=== PATIENT | female | born 1950 | race Hispanic/Latino ===

== ENCOUNTER 2017-12-23 15:47 | Outpatient (CLI) | payer MEDICARE, MEDICAID | END 2017-12-23 15:48 | disposition home or self-care (01) | LOC: BICMAMMO 15:47 | PROVIDERS: ATTEND Family Medicine | DX: Z12.31 Encounter for screening mammogram for malignant neoplasm of breast (principal) | CPT/HCPCS: 77063; 77067 ==

== ENCOUNTER 2018-12-30 15:03 | Outpatient (CLI) | payer MEDICARE, MEDICAID ==
--- NOTE | 2018-12-31 11:14 | MMO ---
Bilateral MAMMO Bilat Screen [facility]. CLINICAL HISTORY: Patient is 68 years old and is seen for screening. The patient has no family history of breast cancer. The patient has no personal history of cancer. VIEWS: The views performed were: bilateral craniocaudal with tomosynthesis and bilateral mediolateral oblique with tomosynthesis. FILMS COMPARED: The present examination has been compared to prior imaging studies performed at [facility] on 12/23/2017, and at [facility] on 10/19/2016. MAMMOGRAM FINDINGS: There are scattered fibroglandular densities. There are benign appearing calcifications seen in both breasts. There are also vascular calcifications. There are no suspicious masses, suspicious calcifications, or new areas of architectural distortion. IMPRESSION: THERE IS NO MAMMOGRAPHIC EVIDENCE OF MALIGNANCY. A ROUTINE FOLLOW-UP MAMMOGRAM IN 1 YEAR IS RECOMMENDED. THE RESULTS OF THIS EXAM WERE SENT TO THE PATIENT. ACR BI-RADS Category 2 - Benign finding MAMMOGRAPHY NOTE: 1. A negative mammogram report should not delay a biopsy if a dominant of clinically suspicious mass is present. 2. Approximately 10% to 15% of breast cancers are not detected by mammography. 3. Adenosis and dense breasts may obscure an underlying neoplasm.
== END 2018-12-30 15:04 | disposition home or self-care (01) ==
LOC: BICMAMMO 15:03
PROVIDERS: ATTEND Family Medicine
DX: Z12.31 Encounter for screening mammogram for malignant neoplasm of breast (principal)
CPT/HCPCS: 77063; 77067

== ENCOUNTER 2019-05-28 15:54 | Outpatient (CLI) | payer MEDICARE, MEDICAID ==
--- NOTE | 2019-05-28 16:17 | RAD ---
2 views lumbar spine: 05/28/2019 COMPARISON: None HISTORY: Low back pain, pain for 2 months FINDINGS: There is prominent facet hypertrophy at L4-5. There is anterolisthesis of L4 on L5 measurin g 9 mm. There is atherosclerotic calcification of the abdominal aorta. There is multilevel lower lumbar spine facet hypertrophy. Pedicles are intact on frontal imaging. IMPRESSION: Lower lumbar spine facet hypertrophy with anterolisthesis of L4 on L5 measuring 9 mm. Rec ommend MRI for full assessment.
== END 2019-05-28 15:55 | disposition home or self-care (01) ==
LOC: BICRAD 15:54
PROVIDERS: ATTEND Family Medicine
DX: M54.5 Low back pain (principal); M43.16 Spondylolisthesis, lumbar region
CPT/HCPCS: 72100

== ENCOUNTER 2019-05-30 09:39 | Inpatient (IN) | payer MEDICARE, MEDICAID ==
[2019-05-30] MEDS ORDERED: Morphine 4 MG/ML VIAL ONE (10:24)
[2019-05-30] MEDS ORDERED: Ondansetron PF 4 MG/2 ML Vial ONE (10:24)
--- NOTE | 2019-05-30 10:58 | RAD ---
Frontal radiograph chest: 05/30/2019 COMPARISON: None HISTORY: Fall, trauma, pain FINDINGS: Supine imaging is provided, limiting assessment for pneumothorax and pleural fluid. Atheros clerotic calcification of the aortic arch noted. No focal consolidation or alveolar edema. IMPRESSION: No acute findings.
--- NOTE | 2019-05-30 10:58 | RAD ---
3 views right shoulder: 05/30/2019 COMPARISON: None HISTORY: Fall, trauma, pain FINDINGS: No fracture or dislocation. There is no widening of the acromioclavicular or coracoclavicul ar interspace. IMPRESSION: No acute findings.
--- NOTE | 2019-05-30 11:00 | RAD ---
2 views right knee: 05/30/2019 COMPARISON: None HISTORY: Fall, trauma, pain FINDINGS: There is a comminuted impacted displaced intra-articular fracture of the distal right femur . The patella projects lateral and inferior to the lateral femoral condyle which may signify patellar dislocation as well. Orthopedic consultation advised. IMPRESSION: Impacted comminuted displaced intra-articular fracture of the distal right femur with pos sible associated patellar dislocation.
--- NOTE | 2019-05-30 11:01 | RAD ---
Frontal and lateral imaging right femur: 05/30/2019 COMPARISON: None HISTORY: Fall, trauma, pain FINDINGS: Markedly displaced comminuted intra-articular fracture of the distal right femur noted. Ort hopedic consultation advised. IMPRESSION: Markedly comminuted and displaced intra-articular fracture of distal right femur.
--- NOTE | 2019-05-30 11:02 | RAD ---
Frontal and lateral imaging of the right tibia/fibula: 05/30/2019 COMPARISON: None HISTORY: Fall, trauma, pain FINDINGS: Partially imaged distal right femur fracture noted. No definite fracture of proximal tibia. No acute osseous abnormality is seen involving the right tibia or fibula. IMPRESSION: Partially visualized distal right femur fracture.
--- NOTE | 2019-05-30 11:27 | CT ---
EXAM: Brain CT scan Without contrast: HISTORY: Injury from a fall COMPARISON: None FINDINGS: Atrophy and chronic white matter ischemic change. No focal mass or midline shift. No intra or extra-axial hemorrhage. The visualized sinuses and mastoids are clear of acute process. IMPRESSION: No mass or bleed or other significant acute intracranial process.
[2019-05-30 11:32] LABS: #Eosinphils 0.2 thou/uL (0.0-0.7); #Lymphocytes 1.9 thou/uL (1.20-3.40); #Monocytes 0.6 thou/uL (0.11-0.59); %Basophils 0.1 % (0.0-1.0); %Eosinophils 1.2 % (0.0-10.0); %Lymphocytes 13.7 % (21.0-51.0); %Monocytes 4.1 % (0.0-10.0); %Neutrophils 80.9 % (42.0-75.0); Hemoglobin 12.9 g/dL (12.0-16.0); Mean Corpuscular HGB CONC 33.9 g/dL (32.0-36.0); Mean Corpuscular Hemoglobin 31.1 pg (27.0-31.0); Mean Corpuscular Volume 91.7 fL (78.0-98.0); Platelet Count 253 thou/uL (130-400); RBC Distribution Width 11.7 % (11.5-14.5); Red Blood Cell (RBC) Count 4.14 mill/uL (4.20-5.40); White Blood Cell (WBC) Count 13.5 thou/uL (4.8-10.8)
--- NOTE | 2019-05-30 11:41 | CT ---
EXAM: CT scan cervical spineWithout contrast: HISTORY: COMPARISON: None FINDINGS: No evidence for acute fracture or facet dislocation. No significant malalignment. Disc osteophytosis changes are noted most marked at C5 and C6 with some associated lateral recess roman nosis. There is some swelling and possibly minimal low-attenuation changes within the right sternocleidomastoid muscle and some adjacent perimuscular edema or hemorrhage raising concern for int ramuscular injury. In addition there is a question of a hairline fracture of the medial right clavicle incompletely seen on this study., Please correlate clinically. IMPRESSION: No evidence for acute cervical spine fracture. Cervical spondylosis. Thickening and some perimuscular fluid involving the right sternocleidomastoid muscle, evidence for i njury with a possible nondisplaced medial right clavicle fracture incompletely seen.
[2019-05-30 11:47] LABS: PTT 22.8 SEC (22.9-36.1)
[2019-05-30 11:53] LABS: ALT (SGPT) 18 U/L (8-55); AST (SGOT) 21 U/L (5-34); Alkaline Phosphatase 88 U/L (40-150); Anion Gap 12 mmol/L (10-20); BUN (Urea Nitrogen) 13 mg/dL (9.8-20.1); Bilirubin, Total 0.3 mg/dL (0.2-1.2); Calc. Creatinine Clearance 0 mL/min (70-130); Calcium 8.7 mg/dL (7.8-10.44); Carbon Dioxide 27 mmol/L (23-31); Chloride 100 mmol/L (98-107); Estimated GFR-MDRD 85; Globulin 2.6 g/dL (2.4-3.5); Glucose 150 mg/dL (80-115); Potassium 3.7 mmol/L (3.5-5.1); Protein, Total 6.6 g/dL (6.0-8.3); Sodium 135 mmol/L (136-145)
[2019-05-30] MEDS ORDERED: hydrALAZINE 20 MG/ML VIAL SLOW IVP PRN (11:58)
[2019-05-30] MEDS ORDERED: Ondansetron ODT 4 MG TAB PO PRN (11:58)
[2019-05-30] MEDS ORDERED: Morphine 2 MG/ML SYRINGE SLOW IVP PRN (11:58)
[2019-05-30] MEDS ORDERED: Dextrose 50% Abboject 50 ML SYRINGE SLOW IVP PRN (11:58)
[2019-05-30] MEDS ORDERED: Dextrose 5% in Water 1,000 ML IV PRN (11:58)
[2019-05-30] MEDS ORDERED: Ondansetron PF 4 MG/2 ML Vial IVP PRN (11:58)
[2019-05-30 12:38] LABS: Magnesium 1.9 mg/dL (1.6-2.6); Phosphorus 2.9 mg/dL (2.3-4.7)
--- NOTE | 2019-05-30 12:55 | CT ---
Exam: CT angiogram right lower extremity with 3-D rendering: HISTORY: Injury from a fall. Comminuted distal femoral fracture. FINDINGS: There are a few scattered calcified plaques involving the popliteal artery but no evidence for associ ated hemodynamically significant stenosis. The trifurcation region appears unremarkable. The mid anterior tibial artery and posterior tibial arteries appear somewhat discontinuous at the level of th e mid calf. There is a very extensively comminuted distal femoral fracture with marked displacement and marked co mminution. There is a laterally displaced/dislocated patella evidence for probable associated medial patellar retinaculum and MPFL injury. No cayla dislocation. IMPRESSION: Intact popliteal artery and trifurcation region. No evidence for popliteal artery injury. Very marked ly comminuted markedly displaced distal femoral fracture with associated lateral patellar dislocation and severe malalignment without cayla dislocation of the knee joint proper.
[2019-05-30] MEDS ORDERED: ISOVUE-370 76%-LOCM 1 ML ONE (12:57)
--- NOTE | 2019-05-30 13:18 | CT ---
Right upper extremity CT scan without IV contrast: HISTORY: Pain following an injury FINDINGS: Markedly comminuted fractures involving the medial right clavicle with some displacement. There is th ickening and heterogeneous attenuation within and surrounding the right sternocleidomastoid muscle probably related to injury. The scapula and humerus and glenohumeral joint region appear unremarkable . IMPRESSION: Comminuted displaced fracture of the most medial portion of the right clavicle with some associated p osttraumatic soft tissue changes within and surrounding the adjacent sternocleidomastoid muscle.
[2019-05-30] MEDS ORDERED: traMADol HCl 50 MG TAB PO PRN (14:26)
[2019-05-30] MEDS ORDERED: Potassium Phosphate 30 MMOL in Sodium Chloride 0.9% 500 ML IVPB SCH (16:45)
[2019-05-30] MEDS ORDERED: Magnesium 2 GM/50 ML 2 GM in Premix Bag 1 BAG IVPB SCH (16:45)
[2019-05-30] MEDS ORDERED: traMADol HCl 50 MG TAB ONE (16:52)
[2019-05-30] MEDS ORDERED: Acetaminophen 500 MG TAB ONE (16:52)
[2019-05-30] MEDS: Sodium Chloride 0.9% 1,000 ML IV SCH (16:55)
[2019-05-30] MEDS: traMADol HCl 50 MG TAB PO SCH (16:55)
[2019-05-30] MEDS ORDERED: Acetaminophen 500 MG TAB PO SCH (18:00)
[2019-05-30] MEDS: Gabapentin 100 MG CAP PO SCH (22:10)
[2019-05-30] MEDS: Ibuprofen 600 MG TAB PO SCH (22:11)
[2019-05-30] MEDS: Famotidine 20 MG TAB PO SCH (22:12)
--- NOTE | 2019-05-30 23:24 | PRG ---
DATE OF SERVICE: 05/30/2019 SUBJECTIVE: The patient was seen this evening during rounds. She was lying in bed and resting comfortably. She was easily arousable and reported that she did have some pain in her right shoulder clavicle area as well as her right hip. Otherwise, she was comfortable and did not need any additional pain medications. OBJECTIVE: VITAL SIGNS: The patient is afebrile and hemodynamically stable. Breathing comfortably on room air. PULMONARY: Equal chest rise and fall. No signs of acute respiratory distress. CARDIAC: Regular rate and rhythm. EXTREMITIES: 2+ pulses in all extremities. Right lower extremity with knee immobilizer in place. Right upper extremity with sling in place. Gross motor and sensation are intact. NEUROLOGIC: GCS is 15. ASSESSMENT: 1. Status post fall from 3 steps due to dizziness. 2. Right distal femur fracture. 3. Right clavicle fracture. 4. History of hypertension, diabetes, hyperlipidemia, and depression. PLAN: The patient will be n.p.o. after midnight with normal saline at 75 an hour. Otherwise, she has a diabetic diet. She is to receive carotid ultrasounds as well as echos in the morning. Orthostatic blood pressures in the bed will also be completed. The patient is not to stand pending [facility] rec and review. Postoperatively, she will work with Physical and Occupational Therapy. She may need placement in either care home facility or acute rehabilitation as she will be nonweightbearing to the right upper and right lower extremity as recommended by Dr. Patel. Job ID: [id number]
--- NOTE | 2019-05-30 23:36 | HP ---
This is Glo Mg NP dictating a report for Phani Rodriguez MD. REQUESTING NURSE PRACTITIONER: Shannan Ennis. CONSULTS: Orthopedic Surgery, Dr. Fraga. HISTORY OF PRESENT ILLNESS: This is a 68-year-old lady, who was going up some steps when she reached down to get something off her leg and when she raised up, she became dizzy and fell approximately 2-3 steps landing onto her right side. The patient presented to the emergency room with pain to right knee and right shoulder. The patient is unsure why she became suddenly dizzy. The patient is diabetic, but had a banana earlier. The patient denies any loss of consciousness or hitting her head. The patient denies being short of breath or having any chest pain prior to falling, just the dizziness with sudden movement from bending down to standing up. The patient also reports that she had an x-ray done as she has been having back pain for the last couple of months. She denies any injuries or any recent heavy lifting. PAST MEDICAL HISTORY: Diabetes type 2, hypertension, high cholesterol, depression. SURGICAL HISTORY: Bilateral cataract surgery. SOCIAL HISTORY: Denies any drug use, denies history of smoking, denies any alcohol use, patient lives at home with family. ALLERGIES: NO KNOWN DRUG ALLERGIES. CURRENT MEDICATIONS: 1. Amlodipine 5 mg daily. 2. Lisinopril/HCTZ 20/25 daily. 3. Metformin 500 mg b.i.d. 4. Simvastatin 40 mg nightly. 5. Lexapro 10 mg q. day. PHYSICAL EXAMINATION: VITAL SIGNS: Blood pressure 112/76, respirations 19, SpO2 of 99% on room air, pulse 87. GENERAL: Patient is awake, alert, in moderate distress due to right shoulder, clavicle and right knee pain. HEENT: Head is atraumatic and normocephalic, mucous membranes are moist, trachea is midline, no cervical tenderness, normal range of motion of neck. RESPIRATORY: Equal chest rise and fall, bilateral breath sounds clear. No wheezing, rales, or rhonchi. CARDIOVASCULAR: Regular rate, regular rhythm, no murmurs. ABDOMEN: Soft, nontender, nondistended. PELVIS: Stable. No tenderness. EXTREMITIES: Normal strength in all extremities. Right shoulder and clavicle tender with ecchymosis, right proximal knee swelling and tenderness. Positive distal pulses in all extremities. Cap refill less than 2 in all extremities. NEUROLOGIC: The patient oriented to person, place, time, and event, cranial nerves intact. LABORATORY DATA: WBC 13.5, RBC 4.14, hemoglobin 12.9, hematocrit 37.9, platelets 253. PT 13.0, INR 1.0, APTT 22.8. Sodium 135, potassium 3.7, chloride 100, BUN 13, creatinine 0.69, estimated GFR 80 glucose 150, calcium 8.7, phosphorus 2.9, magnesium 1.9. AST 21, ALT 18, alkaline phos 88. Troponin I less than 0.010. DIAGNOSTICS: 1. Right knee x-ray; impression: Impacted comminuted distal intra-articular fracture of the distal right femur with possible associated patellar dislocation. 2. Brain CT; no mass or bleed or other significant acute intracranial process. 3. Cervical spine CT; impression: No evidence for acute cervical fracture. Cervical spondylosis. Thickening and some perimuscular fluid involving the right sternocleidomastoid muscle. Evidence for injury with possible nondisplaced medial right clavicle fracture incompletely seen. 4. Chest x-ray; no acute findings. 5. Right femur x-ray; markedly comminuted and displaced intra-articular fracture of distal right femur. 6. Right shoulder x-ray; no fracture, dislocation. 7. Right tibia/fibula x-ray; partially visualized distal right femur fracture. 8. Lower extremity CTA; intact popliteal artery. Comminuted, markedly displaced distal femur femoral fracture with associated lateral patellar dislocation. 9. Upper extremity CT; comminuted displaced fracture of the most medial portion of the right clavicle with some associated post-traumatic soft tissue changes within the surroundings, the adjacent sternocleidomastoid muscle. IMPRESSION: 1. Status post fall from 2-3 steps. 2. Right distal femur fracture. 3. Right comminuted fractures of the medial right clavicle with some displacement. 4. Right patella dislocation. 5. Dizziness, near syncope. 6.. Acute traumatic pain. 7. History of hypertension, type 2 diabetes, depression. PLAN: We will admit the patient to the surgical floor. Orthopedics plans to take the patient to the OR tomorrow morning. The patient will be placed on a diabetic diet today and then n.p.o. at midnight for surgery. The patient will be placed on maintenance fluids. The patient will be placed on mechanical DVT prophylaxis and chemical DVT prophylaxis postop. ER will place a knee immobilizer to right lower extremity and a sling to the right upper extremity. The plan has been discussed with the patient and family who agree. The plan will be discussed with the attending after this dictation. Job ID: [id number] MTDD
[2019-05-31] MEDS: traMADol HCl 50 MG TAB PO SCH ×4 (01:00→17:32)
[2019-05-31] MEDS: Acetaminophen 1,000 MG in Premix Bag 1 BAG IVPB SCH ×4 (01:02→17:33)
[2019-05-31 01:21] VITALS: BMI 31.7
--- NOTE | 2019-05-31 04:06 | CON ---
DATE OF CONSULTATION: 05/30/2019 HISTORY OF PRESENT ILLNESS: Ms. Maldonado is a 68-year-old female who was out on her porch earlier today. She felt dizzy, fell, and had immediate pain in the right knee and right clavicular area. The patient was brought to the emergency room, and x-rays revealed severely comminuted fractures of the distal femur including the lateral and medial femoral condyles with lateral dislocation of the patella. She also has a comminuted fracture of the medial right clavicle. PAST MEDICAL HISTORY/MEDICAL ILLNESSES: Hypertension, type 2 diabetes, high cholesterol. CURRENT MEDICATIONS: 1. Amlodipine. 2. Lisinopril. 3. Metformin. PAST SURGICAL HISTORY: Eye surgery. SOCIAL HISTORY: The patient lives at home. She does not use tobacco or alcohol. PHYSICAL EXAMINATION: GENERAL: The patient is a pleasant female, alert, cooperative with the examination. VITAL SIGNS: Blood pressure 132/67, pulse 74, respiratory rate 17. HEENT: Unremarkable for age. Cranial nerves 2 through 12 grossly intact. NECK: Good range of motion without pain. MUSCULOSKELETAL: The patient is tender directly over the medial aspect of the right clavicle and it does moving the right upper extremity causes pain in the right medial aspect of the clavicle. Both lower and upper extremities are neurovascularly intact. The left lower extremity has good range of motion of all joints without pain. Right lower extremity, there is significant swelling and tenderness around the right knee and distal thigh. The right lower extremity is neurovascularly intact. IMPRESSION: 1. Severely comminuted fractures of the right distal femur including the lateral medial condyles. 2. Comminuted fracture of the medial aspect of the right clavicle. 3. Type 2 diabetes. 4. Hypertension. 5. High cholesterol. PLAN: The patient will require open reduction and internal fixation of the right distal femur. I did not recommend surgery for the medial aspect of the right clavicle. She will be admitted and evaluated by medical doctors. We will plan on taking the patient to Surgery tomorrow for the surgery on the distal femur. Potential risks with the condition of surgery include, but are not limited to infection, bleeding, pain, damage to blood vessels and nerves, nonunion, malunion, the patient may require additional surgery, DVT and PE formations. This will be very difficult for the patient because she will not be able to put any weight on the right lower extremity until the fractures have healed which will take a minimum of 3 months. She will not be able to use her right upper extremity for weightbearing because of the fracture of the right clavicle, so she will essentially be a wheelchair ambulator until the fractures have abundant time to heal. Job ID: [id number]
[2019-05-31] MEDS ORDERED: CEFAZOLIN 2 GM in Premix Bag 1 BAG IVPB SCH (05:15)
[2019-05-31] MEDS: Sodium Chloride 0.9% 1,000 ML IV SCH ×3 (05:56→17:31)
[2019-05-31] MEDS: Ibuprofen 600 MG TAB PO SCH ×3 (06:00→21:04)
[2019-05-31 06:12] LABS: Anion Gap 10 mmol/L (10-20); BUN (Urea Nitrogen) 18 mg/dL (9.8-20.1); Calc. Creatinine Clearance 93 mL/min (70-130); Calcium 7.9 mg/dL (7.8-10.44); Carbon Dioxide 26 mmol/L (23-31); Chloride 100 mmol/L (98-107); Estimated GFR-MDRD 75; Glucose 126 mg/dL (80-115); Magnesium 2.6 mg/dL (1.6-2.6); Sodium 132 mmol/L (136-145)
[2019-05-31 06:30] LABS: #Eosinphils 0.1 thou/uL (0.0-0.7); #Lymphocytes 2.2 thou/uL (1.20-3.40); #Monocytes 0.5 thou/uL (0.11-0.59); #Neutrophils 3.8 thou/uL (1.40-6.50); %Basophils 0.2 % (0.0-1.0); %Eosinophils 0.9 % (0.0-10.0); %Lymphocytes 33.3 % (21.0-51.0); %Monocytes 7.8 % (0.0-10.0); %Neutrophils 57.8 % (42.0-75.0); Hemoglobin 9.4 g/dL (12.0-16.0); Mean Corpuscular HGB CONC 33.8 g/dL (32.0-36.0); Mean Corpuscular Hemoglobin 31.2 pg (27.0-31.0); Mean Corpuscular Volume 92.4 fL (78.0-98.0); Mean Platelet Volume 7.6 fL (7.4-10.4); Platelet Count 210 thou/uL (130-400); Red Blood Cell (RBC) Count 3.02 mill/uL (4.20-5.40); White Blood Cell (WBC) Count 6.6 thou/uL (4.8-10.8)
[2019-05-31] MEDS ORDERED: Neomycin-Polymyxin 1 ML AMP ONE (07:38)
[2019-05-31] MEDS ORDERED: Lidocaine 1% PF 5 ML VIAL ONE (07:42)
[2019-05-31] MEDS ORDERED: Ondansetron PF 4 MG/2 ML Vial ONE (07:42)
[2019-05-31] MEDS ORDERED: PROPOFOL 200 MG/20 ML VIAL ONE (07:42)
[2019-05-31] MEDS ORDERED: PHENYLEPHRINE-NS 100 MCG/ML 10 ML SYRINGE ONE (07:42)
[2019-05-31] MEDS ORDERED: ePHEDrine 50 MG/ML VIAL ONE (07:42)
[2019-05-31] MEDS: Gabapentin 100 MG CAP PO SCH ×3 (08:00→21:04)
[2019-05-31] MEDS: Escitalopram Oxalate 10 mg Tablet PO SCH (08:00)
[2019-05-31] MEDS: Famotidine 20 MG TAB PO SCH ×2 (08:00→21:04)
--- NOTE | 2019-05-31 08:28 | ULT ---
EXAM: Carotid vascular duplex with color and spectral Doppler imaging: HISTORY: Dizziness, fall, injury COMPARISON: None FINDINGS: Visible plaque in both distal CCAs and proximal ICAs. Right ICA: PSV: 96 cm/s EDV: 27 cm/s ICA/CCA ratio: 1.2 Left ICA: PSV: 95 cm/s EDV: 32 cm/s ICA/CCA ratio: 1.0 Antegrade flow is seen in both vertebral arteries.. IMPRESSION: No evidence for hemodynamically significant ICA stenosis Bilateral visible plaque evidence for atherosclerotic carotid vascular disease.
[2019-05-31] MEDS ORDERED: Prevnar 13-Val Conj/PF 0.5 ML SYRINGE IM ONE (09:00)
[2019-05-31] MEDS ORDERED: Fentanyl 250 MCG/5 ML VIAL ONE (09:59)
[2019-05-31] MEDS ORDERED: Bupivacaine HCl 0.5%/Epinephrine 1:200,000/PF 30 ml Vial ONE (12:25)
[2019-05-31] MEDS ORDERED: Milk Of Magnesia 30 ML UDCUP PO PRN (12:52)
[2019-05-31] MEDS ORDERED: Ondansetron ODT 4 MG TAB PO PRN (12:52)
[2019-05-31] MEDS ORDERED: Fleet Enema 133 ML BOT PR PRN (12:52)
[2019-05-31] MEDS ORDERED: Cepastat Lozenges 1 LOZ PO PRN (12:52)
[2019-05-31] MEDS ORDERED: Bisacodyl 10 MG SUPP PR PRN (12:52)
[2019-05-31] MEDS ORDERED: Ondansetron PF 4 MG/2 ML Vial IVP PRN (12:52)
[2019-05-31] MEDS ORDERED: Promethazine HCl 25 MG/ML VIAL SLOW IVP PRN (12:56)
[2019-05-31] MEDS ORDERED: Promethazine HCl 25 MG/ML VIAL IM PRN (12:56)
[2019-05-31] MEDS ORDERED: Ondansetron HCl/PF 4 MG/2 ML Vial IVP PRN (12:56)
--- NOTE | 2019-05-31 14:02 | PRG ---
DATE OF SERVICE: 05/31/2019 SUBJECTIVE: This is a 68-year-old, status post fall from 2 to 3 steps, right distal femur fracture and right comminuted fractures at the medial right clavicle. The patient is hospital day #2 pending surgical repair of her right distal femur and patella dislocation. The patient had no overnight events. The patient remains in sinus rhythm on the telemonitor without any arrhythmias. The patient denies any chest pain, shortness of breath, or dizziness. OBJECTIVE: VITAL SIGNS: Temperature 98.6, pulse 73, respirations are 18, SpO2 of 97% on 2 L nasal cannula, and blood pressure 105/55. GENERAL: The patient is awake and alert, in no distress. RESPIRATORY: Equal chest rise and fall, no respiratory distress. CARDIOVASCULAR: Regular rate, regular rhythm, no murmurs. EXTREMITIES: Moves all extremities. Normal distal pulses. NEUROLOGIC: No focal deficits. The patient is alert and oriented. LABORATORY DATA: WBC 6.6, RBC 3.02, hemoglobin 9.4, hematocrit 27.9, and platelets are 210. Sodium 132, potassium 4.0, chloride 100, BUN 18, creatinine 0.77, estimated GFR 75, glucose 126, calcium 7.9, phosphorus 5.0, and magnesium 2.6. DIAGNOSTIC DATA: Carotid Doppler study; impression, no evidence of hemodynamically significant ICA stenosis. Bilateral visible plaque evidence for atherosclerotic carotid vascular disease. IMPRESSION: 1. Status post fall, 2 to 3 steps. 2. Distal right femur fracture. 3. Right comminuted fracture of the medial right clavicle with some displacement. 4. Right patellar dislocation. 5. Dizziness. 6. Acute traumatic pain. 7. History of hypertension, type 2 diabetes, and depression. PLAN: The patient has been n.p.o. since midnight and going to surgery shortly. We will place the patient on a diabetic diet postoperatively as tolerated. We will have Physical and Occupational Therapy work with the patient postoperatively. The patient will be moved to the surgical floor postoperatively as she has not had any cardiac arrhythmias, dizziness, chest pain, or shortness of breath. A rehab screen has been placed. The plan has been discussed with the patient and family, who agreed. The plan has been discussed with the attending, who agrees. Job ID: [id number]
--- NOTE | 2019-05-31 14:06 | OP ---
DATE OF PROCEDURE: 05/31/2019 PREOPERATIVE DIAGNOSIS: Severely comminuted fractures of the medial and lateral femoral condyles. POSTOPERATIVE DIAGNOSIS: Severely comminuted fractures of the medial and lateral femoral condyles. PROCEDURE PERFORMED: Open reduction and internal fixation of the medial and lateral femoral condyles of the right distal femur. ANESTHESIA: General. DESCRIPTION OF PROCEDURE: The patient was given preoperative IV antibiotics, taken to the operating room, placed in the supine position. Satisfactory general anesthesia was performed. The right lower extremity was sterilely prepped and draped in usual fashion. After exsanguination of tourniquet, the right proximal thigh was raised to 250 mmHg. The medial femoral condyle was manipulated with traction and a small incision was made on the medial aspect of the right knee, and under fluoroscopic visualization, two guide pins were placed, and then, two 6.5 cannulated screws were inserted to provide stability for the medial femoral condyle. A longitudinal incision was then made along the lateral aspect of the right distal femur approximately 9 inches in length. Sharp dissection was made down to the iliotibial band, which was also divided longitudinally, and the lateral aspect of the knee and distal femur were exposed. The lateral femoral condyle was not only broken away from the medial femoral condyle, but was also broken into an anterior and posterior fragment. The anterior fragment was reduced and internally fixed with a 6.5 cannulated screw, and the posterior portion of the condyle was also reduced and held with a screw. The condyles were placed together and fixation was provided with additional 6.5 cannulated screw, and then, a [employer] 6-hole distal femoral locking plate was inserted using two of the 4.5 cortical screws to pull the plate to the lateral aspect of the distal femur and then 5.0 locking screws were placed distally in the condyles and also in the distal aspect of the femoral shaft. Again, this was all performed under fluoroscopic visualization. The wounds were then copiously irrigated with antibiotic solution, and the lateral wound was closed using #2 Vicryl for the iliotibial band, 0 Vicryl for the fat, subcutaneous tissues, and skin was closed skin gaviota. The small medial wound was also closed with 0 Vicryl and skin gaviota. Total of 30 mL of 0.5% Marcaine with epinephrine was injected around the incisions and into the fracture site. Sterile dressing was applied. Tourniquet was released. Leg was placed back into a knee immobilizer, and the patient was awakened, extubated, and transferred to recovery room in stable condition. ESTIMATED BLOOD LOSS: 200 mL. COMPLICATIONS: None. TOURNIQUET TIME: 107 minutes. Job ID: [id number]
--- NOTE | 2019-05-31 15:03 | RAD ---
Right femur 2 views: HISTORY: ORIF right femur COMPARISON: 05/30/2019 There is been marked improvement in position and alignment of the markedly comminuted distal femoral fracture stabilized with metal plate and multiple screws. There does appear to be a large displaced fragment of the distal femur adjacent to the patella. IMPRESSION: Status post ORIF distal right femur stabilize a markedly comminuted fracture as above.
[2019-05-31] MEDS: HumaLOG 300 UNITS/3 ML VIAL SC PRN (17:37)
[2019-05-31] MEDS: Simvastatin 40 MG TAB PO SCH (21:04)
[2019-05-31] MEDS: Ferrous Gluconate 324 MG TAB PO SCH (21:04)
[2019-05-31] MEDS: Senokot S 8.6-50 MG TAB PO SCH (21:04)
[2019-06-01] MEDS: traMADol HCl 50 MG TAB PO SCH ×5 (00:16→23:35)
[2019-06-01] MEDS: Acetaminophen 500 MG TAB PO SCH ×5 (00:16→23:35)
--- NOTE | 2019-06-01 00:28 | PRG ---
DATE OF SERVICE: 05/31/2019 The patient was seen today during the evening rounds. She was resting comfortably and asleep at the time of my evaluation. She had no signs of acute respiratory distress. The patient is status post fall from 3 steps due to dizziness. She is postoperative day #0 after ORIF of the medial and lateral femoral condyle of the right distal femur. Postoperatively, she had a diabetic diet. We will continue her current pain regimen as well. Remove Elizondo postop day #1. We will continue to hold her home antihypertensive medications as they are not indicated at this time. Carotid ultrasound demonstrated no significant stenosis. Echo completed today demonstrated mild diastolic dysfunction with normal ejection fraction. Tomorrow, she will work with Physical and Occupational Therapy and will likely need placement at acute rehabilitation or detention facility. Job ID: [id number]
[2019-06-01 04:48] LABS: #Eosinphils 0.2 thou/uL (0.0-0.7); #Lymphocytes 1.8 thou/uL (1.20-3.40); #Monocytes 0.7 thou/uL (0.11-0.59); #Neutrophils 5.1 thou/uL (1.40-6.50); %Eosinophils 2.2 % (0.0-10.0); %Lymphocytes 23.6 % (21.0-51.0); %Monocytes 8.6 % (0.0-10.0); %Neutrophils 65.5 % (42.0-75.0); Hemoglobin 7.6 g/dL (12.0-16.0); Mean Corpuscular HGB CONC 33.9 g/dL (32.0-36.0); Mean Corpuscular Volume 94.5 fL (78.0-98.0); Mean Platelet Volume 7.5 fL (7.4-10.4); Platelet Count 160 thou/uL (130-400); Red Blood Cell (RBC) Count 2.36 mill/uL (4.20-5.40); White Blood Cell (WBC) Count 7.8 thou/uL (4.8-10.8)
[2019-06-01 05:18] LABS: Anion Gap 10 mmol/L (10-20); BUN (Urea Nitrogen) 18 mg/dL (9.8-20.1); Calc. Creatinine Clearance 90 mL/min (70-130); Calcium 7.4 mg/dL (7.8-10.44); Carbon Dioxide 22 mmol/L (23-31); Chloride 99 mmol/L (98-107); Estimated GFR-MDRD 72; Glucose 120 mg/dL (80-115); Magnesium 2.3 mg/dL (1.6-2.6); Phosphorus 3.8 mg/dL (2.3-4.7); Potassium 3.8 mmol/L (3.5-5.1); Sodium 127 mmol/L (136-145)
[2019-06-01] MEDS: Ibuprofen 600 MG TAB PO SCH ×3 (06:14→21:20)
[2019-06-01] MEDS ORDERED: Calcium Gluconate 4.6 MEQ in Sodium Chloride 0.9% 100 ML IVPB SCH (07:33)
[2019-06-01] MEDS: Ferrous Gluconate 324 MG TAB PO SCH ×2 (08:32→21:19)
[2019-06-01] MEDS: Multivitamin W/ Minerals 1 TAB PO SCH (08:33)
[2019-06-01] MEDS: Escitalopram Oxalate 10 mg Tablet PO SCH (08:33)
[2019-06-01] MEDS: Ascorbic Acid 500 mg Chewable Tablet PO SCH ×2 (08:33→21:21)
[2019-06-01] MEDS: Senokot S 8.6-50 MG TAB PO SCH ×2 (08:33→21:20)
[2019-06-01] MEDS: Famotidine 20 MG TAB PO SCH ×2 (08:33→21:20)
[2019-06-01] MEDS: Gabapentin 100 MG CAP PO SCH ×4 (08:33→21:19)
--- NOTE | 2019-06-01 12:08 | PRG ---
DATE OF SERVICE: 06/01/2019 SUBJECTIVE: This is a 68-year-old female status post fall from 2 to 3 steps, right distal femur fracture and right comminuted fractures at the medial right clavicle. The patient is postop day number one open reduction and internal fixation of medial and lateral femoral condyles of the right distal femur. The patient is nonweightbearing to that right lower extremity. The patient reports moderate amount of pain currently lying in bed. The patient had no overnight events. The patient continues to have good urinary output and is tolerating a diabetic diet. The patient is waiting to work with Physical Therapy. OBJECTIVE: VITAL SIGNS: Blood pressure 108/67, pulse 84, respirations 16, SpO2 of 93% on room air, temperature 98.6. GENERAL: The patient awake, alert, in moderate distress due to pain in right leg. RESPIRATORY: Equal chest rise and fall, no respiratory distress. CARDIOVASCULAR: Regular rate, regular rhythm. EXTREMITIES: Moves all extremities, normal distal pulses, moderate amount of right femur pain. NEUROLOGIC: No focal deficits. LABORATORY DATA: WBC 7.8, RBC 2.36, hemoglobin 7.6, hematocrit 22.3, platelets 160, sodium 127, potassium 3.8, chloride 99, BUN 18, creatinine 0.79, estimated GFR 72, glucose 120, calcium 7.4, phosphorus 3.8, magnesium 2.3. DIAGNOSTICS: Echocardiogram results: Ejection fraction is visually estimated at 55% to 60% with diastolic dysfunction. IMPRESSION: 1. Status post fall, 2-3 steps. 2. Distal right femur fracture, postop day #1 open reduction and internal fixation. 3. Right comminuted fracture of the medial right clavicle with some displacement, non operative. 4. Right patellar dislocation. 5. Dizziness, resolved. 6. Acute traumatic pain. 7. Hyponatremia. 8. Acute blood loss anemia. 9. Hypocalcemia. 10. History of hypertension, type 2 diabetes, and depression. PLAN: The patient worked with physical and occupational therapy. We will increase the patient's pain regimen. We will place the patient on chemical DVT prophylaxis. We will replace electrolytes. We will place the patient on iron and vitamin C for anemia. We will continue to monitor the patient's hemoglobin. The patient was examined by Dr. Joe during morning rounds. The plan was discussed with the patient who agrees. Job ID: [id number]
--- NOTE | 2019-06-01 13:00 | PRG ---
DATE OF SERVICE: 06/01/2019 SUBJECTIVE: Ms. Maldonado states that she has fairly good pain control. She has pain in her right knee and over the right midclavicular and right chest region. She was able to get out of bed and sit in chair with physical therapy today. OBJECTIVE: VITAL SIGNS: The patient has been afebrile. Vital signs have been stable. LABORATORY DATA: CBC shows white count of 7.8, hemoglobin 7.6, hematocrit 22.3. ASSESSMENT AND PLAN: The patient will continue to work with physical therapy. She will need to be nonweightbearing on the right lower extremity. She will not be able to bear weight on the right upper extremity because of the clavicle fracture. So essentially, she will need to work with therapy as far as being able to pivot on the left lower extremity into a wheelchair. We will have Comic Book Designer, Equipment Engineering Technician evaluate the patient to see if any assistance can be provided to her while she recuperates. She will need to be nonweightbearing on the right lower extremity for approximately 3 months. Job ID: [id number]
[2019-06-01] MEDS: HumaLOG 300 UNITS/3 ML VIAL SC PRN (17:48)
[2019-06-01] MEDS: Aspirin 81 mg Enteric Coated Tablet PO SCH (21:20)
[2019-06-01] MEDS: Simvastatin 40 MG TAB PO SCH (21:21)
--- NOTE | 2019-06-01 23:50 | PRG ---
DATE OF SERVICE: 06/01/2019 The patient was seen and evaluated during evening rounds today. She was resting comfortably and asleep at the time of my evaluation. She had no acute respiratory distress. She is afebrile, hemodynamically stable, saturating between 92% and 97% on 2 L nasal cannula. She is postoperative day #1 status post ORIF of the right medial and lateral femoral condyle of the right distal femur fracture. She also has a right clavicle fracture. The patient had some hyponatremia today with a sodium of 127. Free water restriction was starting at that time. Continue to hold her home antihypertensive medications, especially hydrochlorothiazide as it can contribute to the hyponatremia. She will continue to work with Physical and Occupational Therapy. She will need placement at either an acute rehab or [facility] facility as she is limited weightbearing on her upper and lower right extremities. Job ID: [id number]
[2019-06-02 05:04] LABS: #Eosinphils 0.3 thou/uL (0.0-0.7); #Lymphocytes 1.2 thou/uL (1.20-3.40); #Monocytes 0.5 thou/uL (0.11-0.59); #Neutrophils 4.2 thou/uL (1.40-6.50); %Basophils 0.3 % (0.0-1.0); %Eosinophils 5.2 % (0.0-10.0); %Lymphocytes 18.7 % (21.0-51.0); %Monocytes 8.3 % (0.0-10.0); %Neutrophils 67.6 % (42.0-75.0); Hemoglobin 7.5 g/dL (12.0-16.0); Mean Corpuscular HGB CONC 34.1 g/dL (32.0-36.0); Mean Corpuscular Hemoglobin 31.7 pg (27.0-31.0); Mean Platelet Volume 7.4 fL (7.4-10.4); Platelet Count 160 thou/uL (130-400); RBC Distribution Width 11.7 % (11.5-14.5); Red Blood Cell (RBC) Count 2.36 mill/uL (4.20-5.40); White Blood Cell (WBC) Count 6.2 thou/uL (4.8-10.8)
[2019-06-02 05:36] LABS: Anion Gap 8 mmol/L (10-20); BUN (Urea Nitrogen) 15 mg/dL (9.8-20.1); Calc. Creatinine Clearance 111 mL/min (70-130); Calcium 7.7 mg/dL (7.8-10.44); Carbon Dioxide 26 mmol/L (23-31); Chloride 101 mmol/L (98-107); Estimated GFR-MDRD Greater than 90; Glucose 131 mg/dL (80-115); Magnesium 2.3 mg/dL (1.6-2.6); Phosphorus 2.2 mg/dL (2.3-4.7); Potassium 3.6 mmol/L (3.5-5.1); Sodium 131 mmol/L (136-145)
[2019-06-02] MEDS: Ibuprofen 600 MG TAB PO SCH ×3 (05:45→21:45)
[2019-06-02] MEDS: Acetaminophen 500 MG TAB PO SCH ×3 (05:45→17:36)
[2019-06-02] MEDS: traMADol HCl 50 MG TAB PO SCH ×3 (05:45→17:36)
[2019-06-02] MEDS: Ferrous Gluconate 324 MG TAB PO SCH (08:56)
[2019-06-02] MEDS: Famotidine 20 MG TAB PO SCH ×2 (08:57→21:45)
[2019-06-02] MEDS: Senokot S 8.6-50 MG TAB PO SCH ×2 (08:57→21:47)
[2019-06-02] MEDS: Multivitamin W/ Minerals 1 TAB PO SCH (08:57)
[2019-06-02] MEDS: Ascorbic Acid 500 mg Chewable Tablet PO SCH ×2 (08:57→21:45)
[2019-06-02] MEDS: Aspirin 81 mg Enteric Coated Tablet PO SCH ×2 (08:57→21:46)
[2019-06-02] MEDS: Gabapentin 100 MG CAP PO SCH ×3 (08:58→21:44)
[2019-06-02] MEDS: Escitalopram Oxalate 10 mg Tablet PO SCH (08:58)
[2019-06-02] MEDS ORDERED: Calcium Chloride 13.6 MEQ in Sodium Chloride 0.9% 100 ML IVPB SCH (09:15)
[2019-06-02] MEDS ORDERED: Potassium Phosphate 30 MMOL in Sodium Chloride 0.9% 250 ML 250 ML IVPB SCH (10:00)
[2019-06-02] MEDS: HumaLOG 300 UNITS/3 ML VIAL SC PRN (12:20)
--- NOTE | 2019-06-02 14:48 | OP ---
DATE OF PROCEDURE: 06/02/2019 SUBJECTIVE: The patient is 2 days status post open reduction and internal fixation of comminuted right distal femur fractures. The patient states that her pain is decreasing. OBJECTIVE: VITAL SIGNS: The patient is afebrile. Vital signs are stable. Her blood pressure is 104/66. LABORATORY DATA: CBC today shows white count of 6.2, hemoglobin 7.5, hematocrit 21.9. ASSESSMENT AND PLAN: Right lower extremity remains neurovascularly intact. The patient will continue to work with therapy. She needs to be nonweightbearing on the right lower extremity. We will have case management to evaluate the patient for possible placement post hospitalization. Job ID: [id number]
[2019-06-02] MEDS: Simvastatin 40 MG TAB PO SCH (21:45)
[2019-06-02] MEDS: Ferrous Sulfate 325 MG TAB PO SCH (21:45)
[2019-06-03] MEDS: traMADol HCl 50 MG TAB PO SCH ×5 (00:18→23:41)
[2019-06-03] MEDS: Acetaminophen 500 MG TAB PO SCH ×5 (00:19→23:41)
--- NOTE | 2019-06-03 00:51 | PRG ---
DATE OF SERVICE: 06/02/2019 Ms. Maldonado is a 68-year-old female, who was seen and evaluated during evening rounds today. The patient was resting comfortably in bed. The patient has no acute respiratory distress. Her vitals are stable. She is postop day 2 status post ORIF of the right medial and lateral femoral condyle with right distal femur fracture and right clavicle fracture. Her hyponatremia is improved. Her kidney function is normal. Her urine is adequate. Plan is to continue pain control. Continue working with PT/OT and caser shoe parts is working for placement either in residential facility or rehabilitation. Job ID: [id number]
[2019-06-03 04:47] LABS: Anion Gap 9 mmol/L (10-20); BUN (Urea Nitrogen) 13 mg/dL (9.8-20.1); Calc. Creatinine Clearance 115 mL/min (70-130); Calcium 8.1 mg/dL (7.8-10.44); Carbon Dioxide 27 mmol/L (23-31); Chloride 101 mmol/L (98-107); Estimated GFR-MDRD Greater than 90; Glucose 116 mg/dL (80-115); Phosphorus 2.4 mg/dL (2.3-4.7); Potassium 4.2 mmol/L (3.5-5.1); Sodium 133 mmol/L (136-145)
[2019-06-03] MEDS: Ibuprofen 600 MG TAB PO SCH ×3 (05:59→21:45)
--- NOTE | 2019-06-03 07:47 | PRG ---
DATE OF SERVICE: 06/02/2019 A 68-year-old female postoperative day #2 for right distal femur fracture, sustained after becoming dizzy and falling down steps. Hospital day #3. Non-operative right clavicle fracture. SUBJECTIVE: The patient seems to be doing well this morning. She states her pain is well controlled. The majority of her pain is from her right shoulder and arm , which she states is 8/10 before she is given pain medication. She says that this pain lessens and becomes tolerable after medicine. She says the pain in her knee and right leg are about 5/10 and this pain also lessens with pain medication. Otherwise, she is eating and drinking without difficulty. Her Eilzondo catheter was discontinued this morning. Physical therapy has had her up in the chair. She is nonweightbearing of the right lower extremity and the right upper extremity. OBJECTIVE: VITAL SIGNS: Temperature 98.5, pulse 82, respirations 18, O2 saturation 92% on 2 L of nasal cannula, blood pressure 117/71. GENERAL: No acute distress. Resting in bed. CARDIAC: Appears well perfused. RESPIRATORY: No acute respiratory distress. Nonlabored breathing. ABDOMEN: Nondistended. EXTREMITIES: Right arm in sling. Right leg in leg brace. LABORATORY DATA: WBC 6.2, hemoglobin 7.5, hematocrit 21.9, and platelets 160. Sodium 131, potassium 3.6, chloride 101, bicarb 26, BUN 15, creatinine 0.64, glucose 131, calcium 7.7, phosphorus 2.2, magnesium 2.3. ASSESSMENT: 1. Status post fall from 2 to 3 steps. 2. Right distal femur fracture status post repair. 3. Right comminuted fractures of the medial right clavicle non-operative. 4. Right patella dislocation. 5. Dizziness, near syncope. 6. Acute traumatic pain. 7. Hyponatremia. 8. Acute blood loss anemia. 9. Acute hypocalcemia. 10. Acute hypophosphatemia. 11. History of hypertension. 12. Type 2 diabetes. 13. Depression. PLAN: We will continue supportive care for the patient. She is not normally on oxygen at home; and so we will continue to keep her O2 sats above 92% and wean the oxygen. Her acute blood loss anemia is stable with hemoglobin at 7.5. We will continue to replete her electrolytes as needed. We have free water restricted her and also held her hydrochlorothiazide for her hyponatremia. She will continue to work with PT and OT. She will need placement at either acute rehab or [facility] facility as she has been placed by Orthopedic surgery to non- weightbearing on her upper and lower right extremities. This patient was seen, examined, and discussed with Dr. Joe, the attending physician, who agrees with the assessment and plan. Job ID: [id number] [facility]
[2019-06-03] MEDS: Polyethylene Glycol 3350 17 GM Packet PO SCH (08:21)
[2019-06-03] MEDS: Gabapentin 100 MG CAP PO SCH ×3 (08:21→21:44)
[2019-06-03] MEDS: Escitalopram Oxalate 10 mg Tablet PO SCH (08:21)
[2019-06-03] MEDS: Ascorbic Acid 500 mg Chewable Tablet PO SCH ×2 (08:21→21:44)
[2019-06-03] MEDS: Ferrous Sulfate 325 MG TAB PO SCH ×2 (08:21→21:45)
[2019-06-03] MEDS: Multivitamin W/ Minerals 1 TAB PO SCH (08:21)
[2019-06-03] MEDS: Famotidine 20 MG TAB PO SCH ×2 (08:21→21:44)
[2019-06-03] MEDS: Aspirin 81 mg Enteric Coated Tablet PO SCH ×2 (08:21→21:48)
[2019-06-03] MEDS: Senokot S 8.6-50 MG TAB PO SCH ×2 (08:22→21:45)
--- NOTE | 2019-06-03 13:20 | PRG ---
DATE OF SERVICE: 06/03/2019 SUBJECTIVE: The patient is currently on the surgical floor. She is hospital day 4, postop day 2, status post ground level fall when she sustained a right distal femur fracture and a right clavicle fracture. The patient underwent operative procedure for her right distal femur fracture, which she tolerated well. She has begun working with physical and occupational therapy, though due to her advanced age and somewhat deconditioning, we are looking to place the patient in a prison facility. Overnight, she had no issues. She is tolerating a diet. Her pain is controlled. Her daughter was again at bedside and acted as our jet dyeing machine tender. OBJECTIVE: VITAL SIGNS: Temperature is 98, heart rate 80, blood pressure 108/68, respirations 16, oxygen saturation 97% on 2 L via nasal cannula. GENERAL: The patient is resting comfortably in bed. She is awake, alert, and appropriate. HEENT: Unremarkable. LUNGS: Clear to auscultation with good inspiratory and expiratory effort. HEART: Regular rate and rhythm. ABDOMEN: Soft, flat, nontender with active bowel sounds. EXTREMITIES: Neurovascularly intact x4. Postop dressing is clean, dry, and intact. LABORATORY FINDINGS: Sodium 133, potassium 4.2, chloride 101, CO2 of 27, BUN 13, creatinine 0.62, glucose 116, magnesium 2.0, phosphorus 2.4. IMAGING STUDIES: There are no radiographs reviewed this morning. ASSESSMENT AND PLAN: 1. Status post fall of approximately 2 to 3 steps. 2. Status post open reduction and internal fixation of right distal femur fracture. 3. Right comminuted clavicle fracture, treated nonoperatively. 4. Right patellar dislocation, status post spontaneous reduction. 5. Near syncope, resolved. 6. Acute traumatic pain, improved. 7. Hyponatremia, improved. 8. Acute blood loss anemia, stable. 9. Acute hypocalcemia, improved. 10. Acute hypophosphatemia, improved. 11. History of hypertension. 12. History of type 2 diabetes. 13. History of depression. PLAN: Plan will be to continue supportive care. Work on prison facility placement. Continue physical and occupational therapy and await final placement determination. The patient was evaluated this morning with Dr. Joe during rounds. Job ID: [id number]
--- NOTE | 2019-06-03 17:57 | PRG ---
DATE OF SERVICE: 06/03/2019 SUBJECTIVE: The patient is status post ORIF of comminuted right distal femur fracture and a fracture of the medial aspect of the right clavicle. The patient states that when she tries to get up she does get a little dizzy. OBJECTIVE: VITAL SIGNS: The patient is afebrile. Vital signs are stable. Her last blood pressure is 112/72. EXTREMITIES: The right lower extremity remained neurovascularly intact. PLAN: The family independence case manager are working on getting the patient placement probably at a nursing home facility. She will continue to work with PT and OT as far as getting out of bed. She needs to be nonweightbearing on the right lower extremity as well as right upper extremity. Job ID: [id number]
[2019-06-03] MEDS: Simvastatin 40 MG TAB PO SCH (21:45)
--- NOTE | 2019-06-04 01:03 | PRG ---
DATE OF SERVICE: 06/03/2019 SUBJECTIVE: Ms. Maldonado is a 68-year-old female with status post fall in which she sustained right distal femur fracture and right medial clavicle fracture and right patellar dislocation with spontaneous reduction. The patient underwent right distal femur fracture ORIF, postop day 4. The patient has been doing good. Pain is well controlled. She is able to work with PT/OT. She is able to have bowel movement. Her UA is pending due to difficulty to collect urine from [place]. She is able to tolerate her regular diet. Vital signs stable. She developed no fever or shortness of breath. However, she complained of pain on the right chest, excruciating pain to touch. As the old chest x-ray did not show any rib fracture, we will repeat chest x-ray tomorrow to rule out rib fracture in which overlooking the old chest x-ray and that she possibly has right chest contusion. PLAN: Continue supportive care. Continue pain control. Continue DVT and gastritis prophylaxis. Continue working with PT/OT. The patient waiting for placement into a rehabilitation facility. Job ID: [id number]
[2019-06-04] MEDS: traMADol HCl 50 MG TAB PO SCH ×3 (05:45→18:23)
[2019-06-04] MEDS: Ibuprofen 600 MG TAB PO SCH ×3 (05:46→20:42)
[2019-06-04] MEDS: Acetaminophen 500 MG TAB PO SCH ×3 (05:46→18:23)
[2019-06-04] MEDS ORDERED: PHOS-NAK 1 PKT PACK PO SCH (06:30)
--- NOTE | 2019-06-04 08:11 | RAD ---
RADIOGRAPH CHEST 1 VIEW: DATE: 06/04/2019 TIME: 6:50 AM HISTORY: 68-year-old female status post acute chest trauma COMPARISON: 05/30/2019 FINDINGS: No grossly displaced fracture identified. Magnification of cardiac shadow. Mild pulmonary venous prom inence. No consolidation, pulmonary edema, pneumothorax, or effacement of lateral costophrenic angles. Allowing for technical differences, probably no major interval change. IMPRESSION: 1. Mild pulmonary venous congestion. 2. Otherwise negative.
[2019-06-04] MEDS: Famotidine 20 MG TAB PO SCH ×2 (09:30→20:41)
[2019-06-04] MEDS: Ascorbic Acid 500 mg Chewable Tablet PO SCH ×2 (09:30→20:41)
[2019-06-04] MEDS: Ferrous Sulfate 325 MG TAB PO SCH ×2 (09:30→20:42)
[2019-06-04] MEDS: Escitalopram Oxalate 10 mg Tablet PO SCH (09:30)
[2019-06-04] MEDS: Gabapentin 100 MG CAP PO SCH ×3 (09:30→20:43)
[2019-06-04] MEDS: Polyethylene Glycol 3350 17 GM Packet PO SCH (09:31)
[2019-06-04] MEDS: Senokot S 8.6-50 MG TAB PO SCH ×2 (09:31→20:43)
[2019-06-04] MEDS: Multivitamin W/ Minerals 1 TAB PO SCH (09:31)
[2019-06-04] MEDS: Aspirin 81 mg Enteric Coated Tablet PO SCH ×2 (09:31→20:41)
[2019-06-04 12:29] LABS: Bacteria/HPF None Seen HPF (None Seen); Bilirubin Negative (Negative); Blood, Urine Negative (Negative); Clarity Clear (Clear); Glucose, Urine (Dipstick) Normal (Negative); Leukocyte 75 Leu/uL (Negative); Mucous/LPF Rare LPF (<2+); Nitrite Negative (Negative); Protein, Urine (Dipstick) 10 mg/dL (Neg-Trace); RBC/HPF 0-3 HPF (0-3); Squamous Epithelial 0-3 HPF (0-3); Urobilinogen Normal mg/dL (Less than 2)
[2019-06-04] MEDS: Simvastatin 40 MG TAB PO SCH (20:43)
[2019-06-05] MEDS: Acetaminophen 500 MG TAB PO SCH ×4 (00:34→17:35)
[2019-06-05] MEDS: traMADol HCl 50 MG TAB PO SCH ×4 (00:34→17:35)
--- NOTE | 2019-06-05 00:42 | PRG ---
DATE OF SERVICE: 06/04/2019 SUBJECTIVE: Ms. Maldonado is a 68-year-old female with status post 2 to 3 days of mechanical fall, in which she sustained right distal femur fracture, right medial clavicle fracture, and right patellar dislocation with spontaneous reduction. The patient underwent right distal femur fracture ORIF postop day 5. The patient has been doing good. Pain is controlled, able to work with PT/OT. Her bowel regimen is normal. Her urine is adequate. She was seen and evaluated during evening rounds today. OBJECTIVE: GENERAL: She is lying down in bed, comfortably with no acute distress. VITAL SIGNS: Stable. LUNGS: Clear bilaterally. HEART: Regular rate and rhythm. ABDOMEN: Soft and nondistended. EXTREMITIES: Dressings of the lower extremity clean, clear, and intact. Neurovascularly intact x4. The right shoulder is on splint. PLAN: Will be continue supportive care. Continue pain control. Continue DVT and gastritis prophylaxis. Continue working with PT/OT. The patient is waiting for placement in detention facility. Job ID: [id number]
[2019-06-05] MEDS: Ibuprofen 600 MG TAB PO SCH ×2 (05:58→14:07)
[2019-06-05 06:02] LABS: Anion Gap 7 mmol/L (10-20); BUN (Urea Nitrogen) 14 mg/dL (9.8-20.1); Calc. Creatinine Clearance 130 mL/min (70-130); Carbon Dioxide 31 mmol/L (23-31); Chloride 99 mmol/L (98-107); Estimated GFR-MDRD Greater than 90; Glucose 115 mg/dL (80-115); Magnesium 2.2 mg/dL (1.6-2.6); Phosphorus 2.7 mg/dL (2.3-4.7); Potassium 4.3 mmol/L (3.5-5.1); Sodium 133 mmol/L (136-145)
[2019-06-05] MEDS ORDERED: PHOS-NAK 1 PKT PACK PO SCH (06:45)
[2019-06-05] MEDS: Gabapentin 100 MG CAP PO SCH ×2 (08:15→14:07)
[2019-06-05] MEDS: Ascorbic Acid 500 mg Chewable Tablet PO SCH (08:15)
[2019-06-05] MEDS: Multivitamin W/ Minerals 1 TAB PO SCH (08:15)
[2019-06-05] MEDS: Polyethylene Glycol 3350 17 GM Packet PO SCH (08:16)
[2019-06-05] MEDS: Escitalopram Oxalate 10 mg Tablet PO SCH (08:16)
[2019-06-05] MEDS: Famotidine 20 MG TAB PO SCH (08:16)
[2019-06-05] MEDS: Ferrous Sulfate 325 MG TAB PO SCH (08:16)
[2019-06-05] MEDS: Aspirin 81 mg Enteric Coated Tablet PO SCH (08:16)
[2019-06-05] MEDS: Senokot S 8.6-50 MG TAB PO SCH (08:16)
[2019-06-05] MEDS: HumaLOG 300 UNITS/3 ML VIAL SC PRN (12:27)
--- NOTE | 2019-06-05 15:55 | PRG ---
DATE OF SERVICE: SUBJECTIVE: The patient remains on the surgical floor. She is status post fall when she sustained a right distal femur fracture and right medial clavicle fracture and a right patellar dislocation with spontaneous reduction. The patient underwent open reduction and internal fixation and is currently postop day 6 from this. She has been working with Physical and Occupational Therapy. Her pain is being controlled. She is tolerating a diet. Her bowel function has returned. We are currently awaiting insurance approval for rehab for the patient. OBJECTIVE: VITAL SIGNS: Temperature is 98, heart rate 83, blood pressure 124/75, respirations 14, oxygen saturation 94% on room air. GENERAL: The patient is resting comfortably in bed. She is awake, alert, responsive, appropriate, utilizing a transportation consultant. She has [place] Coma Scale of 15. HEENT: Unremarkable. LUNGS: Clear to auscultation with good inspiratory and expiratory effort. HEART: Regular rate and rhythm. ABDOMEN: Soft, flat, nontender with active bowel sounds. EXTREMITIES: Neurovascularly intact x4. LABORATORY FINDINGS: Sodium 133, potassium 4.3, chloride 99, CO2 of 31, BUN 14, creatinine 0.55, glucose 115, magnesium 2.2, and phosphorus 2.7. IMAGING STUDIES: There are no radiographs reviewed this morning. ASSESSMENT AND PLAN: 1. Status post fall from approximately 2 to 3 stairs/steps. 2. Status post open reduction and internal fixation of right distal femur fracture. 3. Right comminuted clavicle fracture being treated nonoperatively. 4. Right patellar dislocation, spontaneous reduction. 5. Near-syncope, resolved. 6. Acute traumatic pain, improved. 7. Hyponatremia, improved, stable. 8. Acute blood loss anemia, stable. 9. Hypocalcemia, resolved. 10. Hypophosphatemia, resolved. PLAN: Plan will be to continue supportive care, physical and occupational therapy and await placement to a [facility] facility. The patient was evaluated this morning with Dr. Joe during rounds. Job ID: [id number]
[2019-06-05 20:01] VITALS: BP 123/72; TEMP 98.4
--- NOTE | 2019-06-08 14:18 | DIS ---
DATE OF ADMISSION: 05/30/2019 DATE OF DISCHARGE: 06/05/2019 ADMISSION DIAGNOSES: 1. Status post fall from approximately 2-3 steps. 2. Comminuted right distal femur fracture. 3. Right clavicle fracture. 4. Right patella dislocation. 5. Dizziness, near syncope. 6. Acute pain secondary to trauma. 7. Acute blood loss anemia. 8. Electrolyte abnormalities. CONSULTATIONS: Orthopedics, Dr. Patel. PROCEDURE: Open reduction and internal fixation of medial and lateral femoral condyles of the right distal femur. SUMMARY: The patient is a 68-year-old woman who reportedly lost her step on a group of stairs which she fell 2 to 3 steps landing primarily on her right knee. The patient was brought to the emergency department where she underwent evaluation and examination of the above injuries. The patient will be taken to the operating room on the day of admission to undergo her above procedures, which she tolerated well. Over the next several days, the patient began working with Physical and Occupational Therapy and attempts were made to place her in rehab, but due to her moderate progress, it was felt that she would best be served by transfer to a care home facility. She was eventually accepted by [facility] and she was transferred there. At time of discharge, she was tolerating a diet, her bowel function returned, her pain was controlled and she was continued to work with Physical and Occupational Therapy. She will follow up with Dr. Patel in 2 to 3 weeks or sooner as needed. The patient may follow up with the Trauma [facility] as needed. Prior to discharge, the patient's anemia had improved and was stable and her electrolytes have been corrected. Job ID: [id number]
== END 2019-06-05 20:10 | DRG 481 ==
LOC: ERS 09:39 → ERHOLD 14:44 → 2NO 20:27 → SURG A 05-31 10:33
PROVIDERS: ADMIT Specialist; ATTEND Specialist
PROC: 0QSB04Z Reposition Right Lower Femur with Internal Fixation Device, Open Approach (ICD-10-PCS; principal; 2019-05-31)
DX: S72.421A Displaced fracture of lateral condyle of right femur, initial encounter for closed fracture (principal); E87.1 Hypo-osmolality and hyponatremia; D62 Acute posthemorrhagic anemia; E11.9 Type 2 diabetes mellitus without complications; I10 Essential (primary) hypertension; E78.00 Pure hypercholesterolemia, unspecified; F32.9 Major depressive disorder, single episode, unspecified; S42.011A Anterior displaced fracture of sternal end of right clavicle, initial encounter for closed fracture; S83.004A Unspecified dislocation of right patella, initial encounter; W17.89XA Other fall from one level to another, initial encounter; E83.51 Hypocalcemia; E83.39 Other disorders of phosphorus metabolism; Z79.899 Other long term (current) drug therapy; Z79.84 Long term (current) use of oral hypoglycemic drugs; S72.431A Displaced fracture of medial condyle of right femur, initial encounter for closed fracture
CPT/HCPCS: 36415; 36416; 70450; 71045; 72100; 72125; 76000; 80048; 80053; 81003; 81015; 83735; 84100; 84484; 85025; 85610; 85730; 86850; 86900; 86901; 93005; 93306; 93880; 94760; 96374; 96375; C1713; C1769; G0390; J0131; J0670; J0690; J2001; J2270; J2405; J2704; J3010; J3475; J3490; J7050; Q9966

== ENCOUNTER 2020-02-23 10:44 | Outpatient (CLI) | payer MEDICARE, MEDICAID ==
--- NOTE | 2020-02-23 11:28 | MMO ---
Bilateral MAMMO Bilat Screen [facility]. CLINICAL HISTORY: Patient is 69 years old and is seen for screening. The patient has no family history of breast cancer. The patient has no personal history of cancer. VIEWS: The views performed were: bilateral craniocaudal with tomosynthesis and bilateral mediolateral oblique with tomosynthesis. FILMS COMPARED: The present examination has been compared to prior imaging studies performed at [facility] on 12/23/2017 and 12/30/2018, and at [facility] on 10/19/2016. This study has been interpreted with the assistance of computer-aided detection. MAMMOGRAM FINDINGS: There are scattered fibroglandular densities. There are stable benign appearing calcifications seen in both breasts. There are also vascular calcifications. There are no suspicious masses, suspicious calcifications, or new areas of architectural distortion. IMPRESSION: THERE IS NO MAMMOGRAPHIC EVIDENCE OF MALIGNANCY. A ROUTINE FOLLOW-UP MAMMOGRAM IN 1 YEAR IS RECOMMENDED. THE RESULTS OF THIS EXAM WERE SENT TO THE PATIENT. ACR BI-RADS Category 2 - Benign finding MAMMOGRAPHY NOTE: 1. A negative mammogram report should not delay a biopsy if a dominant of clinically suspicious mass is present. 2. Approximately 10% to 15% of breast cancers are not detected by mammography. 3. Adenosis and dense breasts may obscure an underlying neoplasm. Reported by: OVI PIMENTEL MD Electonically Signed: [id number]
== END 2020-02-23 10:45 | disposition home or self-care (01) ==
LOC: BICMAMMO 10:44
PROVIDERS: ATTEND Family Medicine
DX: Z12.31 Encounter for screening mammogram for malignant neoplasm of breast (principal)
CPT/HCPCS: 77063; 77067

== ENCOUNTER 2020-03-16 15:33 | Outpatient (CLI) | payer MEDICARE, MEDICAID ==
--- NOTE | 2020-03-16 16:14 | BD ---
EXAM: DEXA bone density examination HISTORY: 69-year-old postmenopausal female for screening COMPARISON: None FINDINGS: L1--bone mineral density 0.655 g/sq cm; T score -3.0 L2--bone mineral density 0.726 g/sq cm; T score -2.7 L3--bone mineral density 0.679 g/sq cm; T score -3.7 L4--bone mineral density 0.785 g/sq cm; T score -2.5 Total L1-L4--bone mineral density 0.716 g/sq cm; T score -3.0 Left femoral neck--bone mineral density0.741; T score -1.0 Total proximal left femur--bone mineral density 0.986; T score 0.4 IMPRESSION: Osteoporosis.
== END 2020-03-16 15:34 | disposition home or self-care (01) ==
LOC: BICMAMMO 15:33
PROVIDERS: ATTEND Family Medicine
DX: Z13.820 Encounter for screening for osteoporosis (principal); M81.0 Age-related osteoporosis without current pathological fracture; M85.852 Other specified disorders of bone density and structure, left thigh
CPT/HCPCS: 77080

== ENCOUNTER 2020-06-24 17:45 | Emergency (ER) | payer MEDICARE, MEDICAID, OTHER ==
[2020-06-25 14:57] LABS: SARS-CoV-2 MS2 Positive; SARS-CoV-2 N Gene Negative; SARS-CoV-2 S Gene Negative; SARS-CoV-2 by NAA Not Detected (NotDetected); SARS-CoV-2 orf1ab Negative
== END 2020-06-24 18:30 | disposition home or self-care (01) ==
LOC: ERS 17:45
DX: Z20.828 Contact with and (suspected) exposure to other viral communicable diseases (principal); I10 Essential (primary) hypertension; E78.00 Pure hypercholesterolemia, unspecified; E11.9 Type 2 diabetes mellitus without complications; F32.9 Major depressive disorder, single episode, unspecified; Z79.84 Long term (current) use of oral hypoglycemic drugs; Z79.899 Other long term (current) drug therapy
CPT/HCPCS: 99283; U0003; 87635

== ENCOUNTER 2021-03-16 12:38 | Outpatient (CLI) | payer MEDICARE, MEDICAID | END 2021-03-16 12:39 | disposition home or self-care (01) | LOC: BICMAMMO 12:38 | PROVIDERS: ATTEND Family Medicine | DX: Z12.31 Encounter for screening mammogram for malignant neoplasm of breast (principal) | CPT/HCPCS: 77063; 77067 ==

== ENCOUNTER 2023-08-02 08:40 | Outpatient (CLI) | payer OTHER, MEDICAID | END 2023-08-02 08:41 | disposition home or self-care (01) | LOC: BICMAMMO 08:40 | PROVIDERS: ATTEND Family Medicine | DX: Z12.31 Encounter for screening mammogram for malignant neoplasm of breast (principal); M81.0 Age-related osteoporosis without current pathological fracture; M85.851 Other specified disorders of bone density and structure, right thigh; M85.852 Other specified disorders of bone density and structure, left thigh | CPT/HCPCS: 77063; 77067; 77080 ==

== ENCOUNTER 2024-09-02 14:37 | Outpatient (CLI) | payer OTHER, MEDICAID | END 2024-09-02 14:38 | disposition home or self-care (01) | LOC: BICMAMMO 14:37 | PROVIDERS: ATTEND Family Medicine | DX: Z12.31 Encounter for screening mammogram for malignant neoplasm of breast (principal) | CPT/HCPCS: 77063; 77067 ==